=== PATIENT | male | born 1970 | race Caucasian/White ===

== ENCOUNTER 2021-08-24 02:42 | Outpatient (CLI) | payer BC, SELFPAY ==
[2021-08-24 15:54] LABS: Anion Gap 8.5 mmol/L (3-11); BUN 14 mg/dL (7-18); CO2 30.5 mmol/L (21.0-32.0); CREATININE 0.9 mg/dL (0.70-1.30); Calcium 9.4 mg/dL (8.5-10.1); Calculated LDL 184 mg/dL (<100); Chloride 105 mmol/L (98-107); Cholesterol 250 mg/dL (<200); Glucose 87 mg/dL (74-106); HDL Cholesterol 42 mg/dL (40-60); Potassium 3.9 mmol/L (3.5-5.1); Sodium 144 mmol/L (136-145); Triglyceride 124 mg/dL (<150)
== END 2021-08-24 02:43 | disposition home or self-care (01) ==
LOC: LBO 02:42
PROVIDERS: PCP Student in an Organized Health Care Education/Training Program; Visit Provider Student in an Organized Health Care Education/Training Program
DX: E86.0 Dehydration (principal); Z13.220 Encounter for screening for lipoid disorders; Z79.1 Long term (current) use of non-steroidal anti-inflammatories (NSAID)
CPT/HCPCS: 36415; 80048; 80061

== ENCOUNTER 2022-06-04 03:35 | Outpatient (CLI) | payer BC, SELFPAY ==
[2022-06-04 15:23] LABS: Anion Gap 10.2 mmol/L (3-11); BUN 13 mg/dL (7-18); CO2 25.8 mmol/L (21.0-32.0); CREATININE 0.9 mg/dL (0.70-1.30); Calcium 9.1 mg/dL (8.5-10.1); Calculated LDL 176 mg/dL (<100); Chloride 105 mmol/L (98-107); Cholesterol 249 mg/dL (<200); Glucose 88 mg/dL (74-106); HDL Cholesterol 48 mg/dL (40-60); Potassium 3.9 mmol/L (3.5-5.1); Sodium 141 mmol/L (136-145); Triglyceride 128 mg/dL (<150)
[2022-06-04 23:03] LABS: PSA, Screening 0.6 ng/mL (<=3.5)
== END 2022-06-04 03:36 | disposition home or self-care (01) ==
LOC: LBO 03:35
PROVIDERS: PCP Student in an Organized Health Care Education/Training Program; Visit Provider Student in an Organized Health Care Education/Training Program
DX: Z12.5 Encounter for screening for malignant neoplasm of prostate (principal); R79.89 Other specified abnormal findings of blood chemistry; R63.5 Abnormal weight gain; Z13.220 Encounter for screening for lipoid disorders
CPT/HCPCS: 36415; 80048; 80061; 84153

== ENCOUNTER 2023-05-10 01:39 | Outpatient (CLI) | payer BC, SELFPAY ==
[2023-05-10 13:02] LABS: Anion Gap 9.1 mmol/L (3-11); BUN 10 mg/dL (7-18); CO2 26.9 mmol/L (21.0-32.0); CREATININE 0.8 mg/dL (0.70-1.30); Calcium 8.7 mg/dL (8.5-10.1); Calculated LDL 158 mg/dL (<100); Chloride 107 mmol/L (98-107); Cholesterol 223 mg/dL (<200); Estimated GFR 106.48 (mL/min/1.73m2); Glucose 93 mg/dL (74-106); HDL Cholesterol 43 mg/dL (40-60); Potassium 3.7 mmol/L (3.5-5.1); Sodium 143 mmol/L (136-145); Triglyceride 113 mg/dL (<150)
== END 2023-05-10 01:40 | disposition home or self-care (01) ==
LOC: LOS 01:39
PROVIDERS: PCP Student in an Organized Health Care Education/Training Program; Visit Provider Student in an Organized Health Care Education/Training Program
DX: Z13.220 Encounter for screening for lipoid disorders (principal)
CPT/HCPCS: 36415; 80048; 80061

== ENCOUNTER 2024-01-30 06:00 | Day surgery (SDC) | payer BC, SELFPAY ==
--- NOTE | 2024-01-29 18:07 | W.ANESPRE ---
General Info Date of Service Date Performed: 01/30/24 Height: 6 ft 3 in Weight: 117.934 kg Body Mass Index (BMI): 32.5 Surgical Procedure: Operation Date: 01/30/24 07:35 Proposed Procedure Side Surgeon p Colonoscopy Donald Wright MD Meds Allergies and Home Medications Allergies Allergy/AdvReac Type Severity Reaction Status Date / Time No Known Allergies Allergy Verified 01/30/24 06:21 Home Medication Medication Instructions Recorded orphenadrine citrate 100 mg 100 mg PO BID PRN muscle spasms 03/07/23 tablet,extended release #30 tabs Current Visit Medications: Current Medications Generic Name Dose Route Start Last Admin Trade Name Freq PRN Reason Stop Dose Admin Ringer's Solution 1,000 mls @ 80 mls/hr 01/30/24 06:00 IV 02/28/24 23:59 INFUSION CLINT IV Miscellaneous Supplies 1 each 01/30/24 06:00 Iv Access IV 02/28/24 23:59 DIRECTED CLINT Sodium Chloride 0 ml 01/30/24 06:00 Normal Saline Flush 10 Ml Syr IV 02/28/24 23:59 PRN PRN Sodium Chloride 0 ml 01/30/24 06:00 Normal Saline 10 Ml Vial IJ 02/28/24 23:59 DIRECTED PRN Sterile Water 0 ml 01/30/24 06:00 Water,Injection,Sterile 10 Ml Vial IJ 02/28/24 23:59 DIRECTED PRN PFSH Active Problems Active Problems: Problem Status Onset Code Bilateral low back pain without sciatica M54.5 Screening for colon cancer Z12.11 Medical History Medical History 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 Hx of gastroesophageal reflux (GERD) Hx burning/reflux; No EGD; Hx PPI use. None now. Left cervical lymphadenopathy Noticing it inc/dec in size .. May be assoc with tooth issue/root-canal. ((Root Canal Risks? 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 review stretches online, and maybe add to daily regimen History of gallbladder disease NEG US. Mostly resolved w/ diet changes .. Mass of left thigh Lateral epicondylitis of right elbow Hx chainsaw/logging injury .. loss of ROM. Gastroesophageal reflux disease Hx PPI (lansoprazole, 2019) .. D/C since diet changes improved GERD/Heartburn. 05/2021. Medical History Comments:: Per pt. stated his dad had parkinsons and anesthesia made it worse Surgical History Surgical History Hx of appendectomy Tobacco Smoking/Tobacco Use Status: Never Passive smoking exposure: No Second hand exposure: No Alcohol Alcohol Intake: current Alcohol intake frequency: a few times a week Substance Use Substance use: Never Substance use type: does not use Vital Signs and Lab Results Vital Signs Most Recent Vital Signs in EMR: Temp Pulse Resp BP Pulse Ox 36.4 C L 82 18 127/88 96 01/30/24 06:24 01/30/24 06:24 01/30/24 06:24 01/30/24 06:24 01/30/24 06:24 Lab Results Blood Type / Crossmatch: No Data to Display Complete Blood Count: No Data to Display Complete Metabolic Panel: No Data to Display Liver Function Panel: No Data to Display Coagulation Panel: No Data to Display Cardiac Panel: No Data to Display Arterial Blood Gas: No Data to Display Venous Blood Gas: No Data to Display Pancreas Panel: No Data to Display Thyroid Panel: No Data to Display Infectious Disease: No Data to Display Blood Cultures: No Data to Display Toxicology Panel: No Data to Display Anesthesia Assessment and Plan Anesthesia History Personal History: No History of Anesthesia Complications Family History: Other Exercise Tolerance Exercise Tolerance: Metabolic Equivalents>4 Cardiac & Pulmonary Exam Cardiac Exam: Normal S1/S2 Heart Sounds Pulmonary Exam: Clear Bilateral Breath Sounds Implantable Cardiac Device Does patient have a Pacemaker or an ICD?: No Airway Exam Known Difficult Airway: No Mallampati Class: 3 Mouth Opening: Normal (> 3cm) Thyromental Distance: Greater than 3 cm Neck Range of Motion: Full ROM Neck Circumference: Normal Teeth Condition: Normal Dentition ASA Classification ASA Score: ASA 2 Emergency Case?: No NPO Status NPO Status: NPO Clears >2 hours, Solids >8 hours Anesthesia Plan Resuscitation Status: Full Code Anesthesia Technique: General Anesthesia Airway Planned: Natural Airway Monitors Used: Standard Monitors Preoperative Comments:: 53 yo male for colo. Sig PMHx: GERD (diet related), never smoker, occ EtOH. low back pain (doing well today). denies major.
--- NOTE | 2024-01-29 18:21 | W.PM.DSUDISC ---
Date of service: 01/30/24 Time of Service: 07:59 Discharge Plan Disposition Patient Disposition: Home Condition: Good Discharge Details Reason For Visit: screening colonocsopy Attending Provider: Donald Wright Primary Care Provider: Sharee Gomez Home Meds and New Rx's Prescriptions: Continued orphenadrine citrate 100 mg tablet extended release 100 mg PO BID PRN (Reason: muscle spasms) Qty: 30 2RF Hold Instructions: Home Medication placed on hold at Doctor's office Discontinued bisacodyl [Dulcolax (bisacodyl)] 5 mg tablet,delayed release (DR/EC) 5 mg PO ONCE Qty: 4 0RF Rx Instructions: Colonoscopy Bowel Prep- Per Instructions polyethylene glycol 3350 17 gram/dose powder 238 g PO ONCE Qty: 238 0RF Rx Instructions: Colonoscopy Bowel Prep- Per Instructions Discharge Instructions Instructions: Colorectal Polyps (GEN) Additional Instructions: Akil, we were able to complete your colonoscopy today without any issues. I did find 1 polyp. This was quite small, and I removed it completely. Will take a week or 2 to get the results of the polyp analysis, and once we have that information, the office will be in touch regarding timing of your next colonoscopy. If you have any questions in the meantime, please do not hesitate to call at any point 1. If tolerated, consume a soft, low fiber diet for 1-2 days. 2. Do not drive, drink alcohol, operate machinery, make critical decisions, or do activities that require coordination or balance for 24 hours. 3. Because air was put into your colon during the procedure, expelling air from your rectum (passing gas or farting) is normal. 4. You may not have a bowel movement for 1-3 days because of the colonoscopy prep. This is normal. 5. Go directly to the emergency room if you notice any of the following: Develop chills (warm to touch), or if you have a thermometer and your temperature is above 101 Difficulty breathing or difficultly swallowing Persistent vomiting Severe abdominal pain, other than gas cramps Severe chest pain Black, tarry stools Any bleeding ? exceeding one tablespoon 6. Call your physician if the site where your intravenous was started becomes red, swollen, painful, and warm to touch. 7. Your physician has reviewed your pre-procedure medications. Please continue to take those medications as previously ordered. You will be given specific information/education regarding any changes to your medications before leaving. Activity:: Activity as Tolerated Diet:: As Tolerated Discharge Orders Discharge Orders: Discharge Order (Routine); Ordered 01/29/24 Ordered By: Donald Wright DS: Diagnosis Discharge Diagnosis (1) Screening for colon cancer: Status: Acute Asessment and Plan: Follow-up on polyp results
--- NOTE | 2024-01-29 18:23 | COLE_ITS ---
Date of service: 01/30/24 Time of Service: 08:01 Colonoscopy Report Date of procedure: 01/30/24 Pre-op diagnosis general: screening colonoscopy Post-op diagnosis procedure note: other (Rectal polyp) Procedure: colonoscopy with polypectomy Surgeon: Donald Wright Anesthesia Type: General:No Airway Estimated blood loss (mL): 5 Pathology: other (0.25 cm rectal polyp) Complications: None Disposition: same day Indications: Akil is a 53 year old man who needs a screening colonoscopy Prep: Miralax/Dulcolax Procedure Start Time: 07:32 Procedure End Time: 07:45 Retraction Time: 8 Findings: 0.25 cm rectal polyp Procedure Description: After the induction of monitored anesthetic care, and with the patient in left lateral decubitus position, I began by performing an external anorectal exam.? Perineum and skin were normal, as was the anal verge.? There was no evidence of external hemorrhoids.? Next, I performed a digital rectal exam.? I did not appreciate any abnormal findings.? Next, I advanced a colonoscope into the rectal vault.? I performed retroflexion.? This appeared normal.? Using insufflation, I then advanced the colonoscope beyond the rectal folds and into the sigmoid colon before advancing towards the cecum.? The scope was noted to be in the cecum by identification of the ileocecal valve and appendiceal orifice.? I then began withdrawing the colonoscope using repeated irrigation as necessary for full evaluation of the colonic mucosa. ?Once the scope was withdrawn to the level of the rectum, great care was taken to examine portions of the rectal folds.? At the top part of the rectal vault was a 0.25 cm flat polyp. Narrowband imaging was used to assist with analysis. The polyp was removed with cold forceps without any issue. Finally, the scope was withdrawn and the patient was brought to the same-day surgery recovery unit as the anesthetic wore off. ?The findings and instructions were shared with the patient prior to discharge. [place] Bowel Prep [place] Bowel Prep Right Colon: 3 Left Colon: 3 Transverse Colon: 3 Total Score: 9
[2024-01-30 06:24] VITALS: BP 127/88; PULSE 82; RESP 18; TEMP 36.4; O2SAT 96
[2024-01-30] MEDS: Lactated Ringers 1,000 ML 80 ML IV (06:38)
[2024-01-30 06:55] VITALS: BMI 32.5
[2024-01-30 07:51] VITALS: BP 106/78; PULSE 70; RESP 14; TEMP 36.3; O2SAT 94
--- NOTE | 2024-01-30 07:56 | W.ANESPOSTOP ---
Postoperative Evaluation Date, Time and Location Date Performed: 01/30/24 Time Performed: 07:56 Patient Location: Day Surgery Unit Vital Signs Most Recent Imported Vital Signs: Most Recent Vital Signs Temp Pulse Resp BP Pulse Ox 36.3 C L 70 14 106/78 94 01/30/24 07:51 01/30/24 07:51 01/30/24 07:51 01/30/24 07:51 01/30/24 07:51 Pain Score Most Recent Pain Score: Most Recent Pain Score Pain Level 0 01/30/24 07:51 Assessment Mental Status: Awake (Alert & Oriented to Patient Baseline) Airway and Respiratory Function: Patent airway with normal (patient baseline) respiratory exam Cardiovascular Function: Hemodynamically Stable Hydration Status: Adequately Hydrated Nausea & Vomiting: No Nausea or Vomiting Pain: Pt. Denies Any Pain Peripheral Nerve Block: Patient did not receive a nerve block
[2024-01-30 08:16] VITALS: BP 122/79; PULSE 69; RESP 16; TEMP 36.4; O2SAT 95
--- NOTE | 2024-01-30 08:44 | BOWEL_PTH ---
PATIENT: Akil Gonzalez LOC: [facility] U#:[id number] AGE/SX: 53/M ROOM: RE01/30/[address]: Donald Wright MD : 1970 BED: DIS: 01/30/2024 SPEC #: [id number] RECD: 01/30/24 12:08 STATUS: AARON RE #: [id number] KATELIN: 01/30/24 08:[address]: Donald Wright DEPT: Surgical Specimen RECD BY: Emy Gudino ENTERED: 01/30/24 12:08 SP TYPE: Bowel OTHR DR: Sharee Gomez DO Tissues: 1 - BIOPSY BOWEL Procedures: GROSS AND MICRO LEVEL 4 Comments: [id number]
== END 2024-01-30 08:36 | disposition home or self-care (01) ==
LOC: SUR 06:00
PROVIDERS: PCP Student in an Organized Health Care Education/Training Program; Visit Provider Surgery
PROC: 0DJD8ZZ Inspection of Lower Intestinal Tract, Via Natural or Artificial Opening Endoscopic (ICD-10-PCS; CPT 45378; principal; 2024-01-30 07:30)
DX: Z12.11 Encounter for screening for malignant neoplasm of colon (principal); K63.5 Polyp of colon
CPT/HCPCS: 45380; 88305; J2704

== ENCOUNTER 2025-05-06 02:55 | Outpatient (CLI) | payer BC, SELFPAY ==
[2025-05-06 17:21] LABS: ALT 65 U/L (16-63); AST 31 U/L (15-37); Albumin 4.4 g/dL (3.4-5.0); Alkaline Phosphatase 95 U/L (46-116); Anion Gap 12.0 mmol/L (3-11); BUN 14 mg/dL (7-18); Bilirubin, Total 0.8 mg/dL (0.2-1.0); CO2 28.0 mmol/L (21.0-32.0); Calcium 9.4 mg/dL (8.5-10.1); Calculated LDL 197 mg/dL (<100); Chloride 103 mmol/L (98-107); Cholesterol 279 mg/dL (<200); Estimated GFR 105.17 (mL/min/1.73m2); Glucose 102 mg/dL (74-106); HDL Cholesterol 45 mg/dL (>or=40); Potassium 4.2 mmol/L (3.5-5.1); Sodium 143 mmol/L (136-145); Total Protein 7.5 g/dL (6.4-8.2); Triglyceride 185 mg/dL (<150); Vitamin D 25 Total 19 ng/mL (30-100)
== END 2025-05-06 02:56 | disposition home or self-care (01) ==
PROVIDERS: PCP Student in an Organized Health Care Education/Training Program; Visit Provider Student in an Organized Health Care Education/Training Program
DX: Z13.220 Encounter for screening for lipoid disorders (principal); Z13.1 Encounter for screening for diabetes mellitus; Z13.9 Encounter for screening, unspecified; R53.83 Other fatigue; G47.26 Circadian rhythm sleep disorder, shift work type
CPT/HCPCS: 36415; 80053; 80061; 82306